=== PATIENT | female | born 1975 | race Caucasian/White ===

== ENCOUNTER 2024-06-07 20:33 | Emergency (ER) | payer MEDICAID ==
[~2024-06-07] VITALS: Ht 172.7 cm; Wt 114.4 kg
[~2024-06-07 20:33] MED LIST: ONDA4TAB6 PO; OXYC-149 PO
[2024-06-07 20:51] VITALS: BP 131/94; PULSE 85; TEMP 98.3; O2SAT 95
[2024-06-07] MEDS: BUPIVAcaine 0.5% W/EPI /PF 10ml vial IJ STA (22:03)
[2024-06-07 22:20] VITALS: RESP 18
[2024-06-07] MEDS: ketorolac trometh 15mg/ml vial 15 MG/ML ML IM ONE (22:20)
[2024-06-07] MEDS ORDERED: AMOX500C2 PO (22:24)
[2024-06-07] MEDS ORDERED: IBUP-1984 PO (22:24)
[2024-06-07] MEDS: amoxicillin 250mg capsule PO ONE (22:34)
== END 2024-06-07 22:41 | disposition home or self-care (01) ==
LOC: ER 20:34
DX: K08.89 Other specified disorders of teeth and supporting structures (principal); F12.90 Cannabis use, unspecified, uncomplicated; Z90.89 Acquired absence of other organs; Z79.1 Long term (current) use of non-steroidal anti-inflammatories (NSAID); Z87.442 Personal history of urinary calculi; Z98.890 Other specified postprocedural states; Z56.0 Unemployment, unspecified; Z72.89 Other problems related to lifestyle
CPT/HCPCS: 64400; 96372; 99284; J1885